=== PATIENT | female | born 1960 | race African-American/Black ===

== ENCOUNTER 2017-12-19 11:01 | Emergency (ER) | payer MEDICAID ==
[~2017-12-19] VITALS: Ht 157.5 cm; Wt 71.0 kg
[2017-12-19 11:08] VITALS: BP 170/70; PULSE 57; RESP 18; TEMP 97.5; O2SAT 100
[2017-12-19] MEDS ORDERED: MECL-62 PO (13:42)
[2017-12-19] MEDS ORDERED: OCEA0.653 EACH NARE (13:42)
[2017-12-19] MEDS ORDERED: OFLO0.3D9 EACH EAR (13:42)
[2017-12-19] MEDS ORDERED: MECLIZINE HCL 25 MG TAB PO ONE (13:45)
--- NOTE | 2017-12-19 13:45 | PD ---
HPI Chief Complaint: ENT Complaint Time Seen by Provider: 13:18 Travel History International Travel<30 days: No Contact w/Intl Traveler<30days: No Traveled to known affect area: No History of Present Illness HPI Patient 57 years old. She complains of vertigo. Duration is been a few days. Last week she developed bilateral otitis. There is been no otorrhea. She has pain in the region of the left frontal sinus and the maxillary sinuses bilaterally. No vomiting. No numbness tingling weakness. No falls or loss conscious. No chest pain. No prior history of vertigo. Vertigo symptoms are intermittent. PFSH Past Medical History ?: Unknown LMP: 12 years ago Social History Alcohol Use: No Tobacco Use: No Substance Use: No Allergies-Medications (Allergen,Severity, Reaction): Coded Allergies: No Known Allergies (Unverified , 12/19/17) Reported Meds & Prescriptions Reported Meds & Active Scripts Active Meclizine (Meclizine HCl) 25 Mg Tab 25 Mg PO TID PRN 14 Days Ofloxacin Otic Drops 0.3 % Drops 5 Drop EACH EAR DAILY 7 Days [place] Nasal [place] (Sodium Chloride) 0.65% [place] 2 [place] EACH NARE DIRECTED PRN Review of Systems Except as stated in HPI: all other systems reviewed are Neg General / Constitutional: No: Fever Physical Exam Narrative GENERAL: 57-year-old female pleasant well-nourished well-developed no acute distress Vital Signs Date Time Temp Pulse Resp B/P (MAP) Pulse Ox O2 Delivery O2 Flow Rate FiO2 12/19/17 11:08 97.5 57 18 170/70 (103) 100 SKIN: Warm and dry. HEAD: Atraumatic. Normocephalic. EYES: Pupils equal and round. No scleral icterus. No injection or drainage. ENT: No nasal bleeding or discharge. Mucous membranes pink and moist. There is minimal erythema and edema in the right external auditory canal. Trace erythema is present in the left. The pain is mainly visualized bilaterally and can see no gross abnormality involving it on either side. NECK: Trachea midline. No JVD. CARDIOVASCULAR: Regular rate and rhythm. RESPIRATORY: No accessory muscle use. Clear to auscultation. Breath sounds equal bilaterally. GASTROINTESTINAL: Abdomen soft, non-tender, nondistended. Hepatic and splenic margins not palpable. MUSCULOSKELETAL: Extremities without clubbing, cyanosis, or edema. No obvious deformities. NEUROLOGICAL: Awake and alert. No obvious cranial nerve deficits. Motor grossly within normal limits. Five out of 5 muscle strength in the arms and legs. Normal speech. PSYCHIATRIC: Appropriate mood and affect; insight and judgment normal. Data Data Last Documented VS Vital Signs Date Time Temp Pulse Resp B/P (MAP) Pulse Ox O2 Delivery O2 Flow Rate FiO2 12/19/17 11:08 97.5 57 18 170/70 (103) 100 Orders Orders Meclizine (Antivert) (12/19/17 13:45) Ed Discharge Order (12/19/17 13:46) MDM Medical Decision Making Medical Screen Exam Complete: Yes Emergency Medical Condition: Yes Medical Record Reviewed: Yes Differential Diagnosis Peripheral vertigo, central vertigo, sinusitis Narrative Course Patient has an element of vertigo peripheral in etiology which could be related to sinus disease and/or ear infection. Scripts as below. Diagnosis Primary Impression: Vertigo Additional Impressions: Otitis externa Qualified Codes: H60.90 - Unspecified otitis externa, unspecified ear Sinusitis Qualified Codes: J32.9 - Chronic sinusitis, unspecified Referrals: Hardy Lopez MD call for appointment Med/Other Pt SpecificInfo: Prescription(s) given Scripts Meclizine (Meclizine) 25 Mg Tab 25 MG PO TID Y for VERTIGO for 14 Days, TAB 0 Refills Prov: Lance Shaw MD 12/19/17 Ofloxacin Otic Drops (Ofloxacin Otic Drops) 0.3 % Drops 5 DROP EACH EAR DAILY for Infection for 7 Days, #1 BOTTLE 0 Refills Prov: Lance Shaw MD 12/19/17 Sal[place] Nasal ([place] Nasal [place]) 0.65% [place] 2 SPRAY EACH NARE DIRECTED Y for NASAL CONGESTION, #1 BOTTLE 0 Refills Prov: Lance Shaw MD 12/19/17 Disposition: 01 DISCHARGE HOME Condition: Stable Lance Shaw MD Dec 19, 2017 13:45
== END 2017-12-19 14:08 | disposition home or self-care (01) ==
LOC: NEPD 11:01
DX: R42 Dizziness and giddiness (principal); H60.90 Unspecified otitis externa, unspecified ear; J32.9 Chronic sinusitis, unspecified
CPT/HCPCS: 99283